=== PATIENT | female | born 1965 ===

== ENCOUNTER 2016-09-13 18:36 | Emergency (ER) | payer OTHER ==
[2016-09-13 18:37] VITALS: BMI 36.6
[2016-09-13 19:21] VITALS: BP 153/53; PULSE 72; RESP 16; TEMP 98.1; O2SAT 99
--- NOTE | 2016-09-13 19:48 | ED PDOC ---
HPI: Back Time Seen by Provider: 09/13/16 19:21 Chief Complaint (Nursing): Back Pain Chief Complaint (Provider): Back Pain History Per: Patient Additional Complaint(s): 51 yo female, no PMH, presents to ED with complaints of lower back pain x 1 week. Pt states pain radiates down left leg x 3 days. Denies trauma. Past Medical History Vital Signs: Last Vital Signs Temp 98.1 F 09/13/16 19:18 Pulse 72 09/13/16 19:18 Resp 16 09/13/16 19:18 BP 153/53 H 09/13/16 19:18 Pulse Ox 99 09/13/16 19:18 - Home Medications Home Medications: Ambulatory Orders Medication Instructions Recorded traMADol [Ultram] 50 mg PO TID #16 tab 03/22/14 Tramadol Hydrochloride [Tramadol] 50 mg PO TID PRN #18 tab 09/04/14 - Allergies Allergies/Adverse Reactions: Allergies Allergy/AdvReac Type Severity Reaction Status Date / Time No Known Allergies Allergy Verified 03/22/14 18:46 - ECG O2 Sat by Pulse Oximetry: 99
[2016-09-13] MEDS ORDERED: Oxycodone/Acetaminophen 5/325 mg Tab ONE (20:22)
[2016-09-13] MEDS ORDERED: Oxycodone/Acetaminophen 5/325 mg Tab PO STA (20:23)
--- NOTE | 2016-09-14 09:43 | RAD ---
PROCEDURE: Left knee dated 09/13/2016. HISTORY: pain COMPARISON: No prior study available for comparison TECHNIQUE: Five views of the left knee performed. FINDINGS: No evidence of acute displaced fracture nor dislocation. The osseous structures appear intact. There appears to be some very minimal medial joint space narrowing. Questionable trace suprapatellar joint effusion. IMPRESSION: No acute fractures. There appears be some very minimal medial joint space narrowing with questionable trace suprapatellar joint effusion
== END 2016-09-13 21:47 | disposition home or self-care (01) ==
LOC: H.ER 18:36
DX: M25.562 Pain in left knee (principal); M54.9 Dorsalgia, unspecified

== ENCOUNTER 2017-05-04 09:05 | Observation (INO) | payer OTHER ==
[2017-05-04 09:18] VITALS: BMI 38.5
[2017-05-04] MEDS ORDERED: Albuterol-Ipratrop 3 mg / 0.5 (3 ml) UD INH STA (09:43)
[2017-05-04] MEDS ORDERED: Albuterol-Ipratrop 3 mg / 0.5 (3 ml) UD IH STA (09:43)
--- NOTE | 2017-05-04 09:47 | ED PDOC ---
HPI: General Adult Time Seen by Provider: 05/04/17 09:16 Chief Complaint (Nursing): Cough, Cold, Congestion Chief Complaint (Provider): Cough History Per: Patient History/Exam Limitations: no limitations Onset/Duration Of Symptoms: Days (yesterday) Have you had recent travel within the past 21 days to any of the following countries: [place], [place], [place] or [place]?: No Current Symptoms Are (Timing): Still Present Severity: Mild Additional Complaint(s): Pt. with cough, congestion, runny nose, bodyaches, chest pain, dyspnea, weakness all over. No headaches or dizziness. Yellow sputum. No abd pain, nausea, vomit, diarrhea. No fever. Past Medical History Reviewed: Nursing Documentation, Vital Signs Vital Signs: Last Vital Signs Temp 98.6 F 05/04/17 09:17 Pulse 100 H 05/04/17 09:17 Resp 16 05/04/17 09:17 BP 116/73 05/04/17 09:17 Pulse Ox 97 05/04/17 09:48 - Medical History PMH: No Chronic Diseases - Surgical History Surgical History: No Surg Hx - Family History Family History: States: Unknown Family Hx - Living Arrangements Living Arrangements: With Family - Social History Current smoker - smoking cessation education provided: No Alcohol: None Drugs: Denies - Home Medications Home Medications: Ambulatory Orders Medication Instructions Recorded traMADol [Ultram] 50 mg PO TID #16 tab 03/22/14 Tramadol Hydrochloride [Tramadol] 50 mg PO TID PRN #18 tab 09/04/14 Cyclobenzaprine [Cyclobenzaprine 10 mg PO TID #20 tab 09/13/16 HCl] Ibuprofen [Motrin] 600 mg PO Q6 #20 tab 09/13/16 oxyCODONE/Acetaminophen [Percocet 1 ea PO Q6 PRN #5 tab 09/13/16 5/325 mg Tab] - Allergies Allergies/Adverse Reactions: Allergies Allergy/AdvReac Type Severity Reaction Status Date / Time No Known Allergies Allergy Verified 05/04/17 09:23 Review of Systems ROS Statement: Except As Marked, All Systems Reviewed And Found Negative Constitutional: Positive for: Weakness ENT: Positive for: Nose Discharge, Nose Congestion Cardiovascular: Positive for: Chest Pain Respiratory: Positive for: Cough, Shortness of Breath, Sputum Musculoskeletal: Positive for: Other (body aches) Neurological: Positive for: Weakness Physical Exam - Reviewed Nursing Documentation Reviewed: Yes Vital Signs Reviewed: Yes - Physical Exam Appears: Positive for: Uncomfortable Head Exam: Positive for: ATRAUMATIC, NORMAL INSPECTION, NORMOCEPHALIC Skin: Positive for: Normal Color, Warm, DRY Eye Exam: Positive for: EOMI, Normal appearance, PERRL ENT: Positive for: Nasal Congestion. Negative for: Pharyngeal Erythema, Tonsillar Exudate Neck: Positive for: Normal, Painless ROM, Supple Cardiovascular/Chest: Positive for: Regular Rate, Rhythm, Chest Non Tender. Negative for: Edema Respiratory: Positive for: Decreased Breath Sounds, Wheezing (mild b/l on expiration) Gastrointestinal/Abdominal: Positive for: Normal Exam, Bowel Sounds, Soft. Negative for: Tenderness Back: Positive for: Normal Inspection. Negative for: L CVA Tenderness, R CVA Tenderness Extremity: Positive for: Normal ROM. Negative for: Tenderness, Pedal Edema Neurologic/Psych: Positive for: Alert, knowledge architect II-XII, Oriented. Negative for: Motor/Sensory Deficits - Laboratory Results Result Diagrams: 05/04/17 10:10 05/04/17 10:10 Interpretation Of Abn Labs: 20.4 wbc - ECG ECG: Positive for: Interpreted By Me, Viewed By Me ECG Rhythm: Positive for: Normal QRS, Normal ST Segment, Sinus Rhythm O2 Sat by Pulse Oximetry: 97 Pulse Ox Interpretation: Normal - Radiology X-Ray: Interpreted by Me, Viewed By Me X-Ray Interpretation: Infiltrates (? b/l peribronchiliar) - Progress ED Course And Treament: 1151: Considering wbc, clinical, and x-ray, will admit tele for pneumonia, sepsis. Stable. Feels better. AAOx3. Spoke with Dr. Brandon. Will admit. - Critical Care Total Time (In Min): 30 Documented Critical Care: Time excludes all time spent performint seperately billable procedures Disposition - Clinical Impression Clinical Impression: Pneumonia - Patient ED Disposition Is Patient to be Admitted: No Counseled Patient/Family Regarding: Studies Performed, Diagnosis, Need For Followup - Disposition Disposition Time: 11:52 Condition: FAIR - Pt Status Changed To: Hospital Disposition Of: Inpatient - Admit Certification Admit to Inpatient:: After my assessment, the patient will require hospitalization for at least two midnights. This is because of the severity of symptoms shown, intensity of services needed, and/or the medical risk in this patient being treated as an outpatient. - POA Present On Arrival: None Core Measure Indicators: Pneumonia
[2017-05-04 10:15] LABS: VENOUS BLOOD GAS BASE EXCESS 6.4 mmol/L (0.0-2.0); VENOUS BLOOD GAS PCO2 45 mmHg (40-60); VENOUS BLOOD PH 7.45 (7.32-7.43)
[2017-05-04] MEDS ORDERED: Albuterol-Ipratrop 3 mg / 0.5 (3 ml) UD ONE (10:17)
[2017-05-04] MEDS: Sodium Chloride 0.9% 1,000 ML IV SCH ×2 (10:18→13:43)
[2017-05-04 10:29] LABS: BASO # 0.1 K/uL (0.0-0.2); BASO % 0.5 % (0.0-2.0); EOS # 0.1 K/uL (0.0-0.7); EOS % 0.4 % (0.0-4.0); HEMATOCRIT 38.8 % (34.0-47.0); LYMPH # 2.4 K/uL (1.0-4.3); LYMPH % 11.5 % (20.0-40.0); MEAN CELL VOLUME 83.9 fl (81.0-99.0); MEAN CORPUSCULAR HEMOGLOBIN 27.3 pg (27.0-31.0); MEAN CORPUSCULAR HGB CONC 32.5 g/dL (33.0-37.0); MEAN PLATELET VOLUME 7.9 fl (7.2-11.7); MONO # 1.9 K/uL (0.0-0.8); MONO % 9.5 % (0.0-10.0); NEUT % 78.1 % (50.0-75.0); NRBC % 0.1 % (0.0-0.0); RED CELL DISTRIBUTION WIDTH 17.6 % (11.5-14.5); WHITE BLOOD COUNT 20.4 K/uL (4.8-10.8)
[2017-05-04 10:42] LABS: PARTIAL THROMBOPLASTIN TIME 23.5 Seconds (25.6-37.1)
[2017-05-04 10:43] LABS: ALB/GLOB RATIO 1.2 (1.0-2.1); ALKALINE PHOSPHATASE 69 U/L (38-126); ALT/SGPT 58 U/L (9-52); AST/SGOT 45 U/L (14-36); BILIRUBIN,TOTAL 0.7 mg/dl (0.2-1.3); BLOOD UREA NITROGEN 10 mg/dl (7-17); CALCIUM 8.6 mg/dL (8.4-10.2); CARBON DIOXIDE 28 mmol/L (22-30); CHLORIDE 98 mmol/L (98-107); GFR AFRICAN-AMERICAN > 60; GLUCOSE,RANDOM 103 mg/dL (65-105); PHOSPHOROUS 3.5 mg/dl (2.5-4.5); POTASSIUM 4.2 MMOL/L (3.6-5.0); SODIUM 135 mmol/l (132-148); TOTAL PROTEIN 7.6 G/DL (6.3-8.2)
--- NOTE | 2017-05-04 11:38 | RAD ---
HISTORY: Sepsis Patient COMPARISON: No prior study available for comparison FINDINGS: LUNGS: Poor inspiration with low lung volumes, crowded bronchovascular markings and mild bibasilar atelectasis. PLEURA: No significant pleural effusion identified, no pneumothorax apparent. CARDIOVASCULAR: Heart size is upper limits of normal/ borderline enlarged OSSEOUS STRUCTURES: No significant abnormalities. VISUALIZED UPPER ABDOMEN: Normal. OTHER FINDINGS: None. IMPRESSION: Poor inspiration with low lung volumes, crowded bronchovascular markings and mild bibasilar atelectasis.
[2017-05-04] MEDS ORDERED: cefTRIAXone (Rocephin) 1 gm Inj IV ONE (11:47)
[2017-05-04] MEDS ORDERED: Sodium Chloride 3% for Inhalation 4 ML VIAL.NEB IH PRN (12:02)
[2017-05-04] MEDS ORDERED: Azithromycin 500 MG in Sodium Chloride 0.9% 250 ML IVPB STA (12:08)
[2017-05-04] MEDS ORDERED: cefTRIAXone IV 1 gm in Dextros 50 ML IVPB STA (12:08)
--- NOTE | 2017-05-04 15:01 | CP.PCM.HP ---
History of Present Illness - History of Present Illness History of Present Illness: CC: Cough, fever, chills This is a 52 year old female with no significant past medical history who came to the ED this morning complaining of severe productive cough, congestion, chest tightness, subjective fever and chills at home for 2 days. She denies any recent sick contacts. Denies any recent travel. The patient states that nothing has made her symptoms better. In the ED, she was found to have significant leukocytosis > 20 and tachycardic at 100. Lactic acid is within normal limits. CXR shows bilateral infiltrative changes consistent with atypical pneumonia. Patient's vital signs improved with fluids, steroids, nebulizer treatment, and antibiotics in the ED. She is to be admitted to telemetry for bilateral pneumonia, atypical, and sepsis. Patient denies chest pain, shortness of breath , fevers, chills, nausea, vomiting, diarrhea, headache. Rest of ROS as below. All of the patient's and/or family's questions were answered at the bedside. Present on Admission - Present on Admission Any Indicators Present on Admission: No Review of Systems - Hematologic/Lymphatic Additional comments: GENERAL/CONSTITUTIONAL: The patient admits to fatigue, fever, and chills. She denies weakness, weight gain or weight loss. HEAD, EYES, EARS, NOSE AND THROAT: Eyes - The patient denies pain, redness, loss of vision, double or blurred vision, flashing lights or spots, dryness, Ears, nose, mouth and throat. The patient denies ringing in the ears, loss of hearing, nosebleeds, loss of sense of smell, dry sinuses, sinusitis, post nasal drip, CARDIOVASCULAR: The patient denies chest pain, chest pressure, or irregular heartbeats, RESPIRATORY: The patient admits to productive cough, congestion, and intermittent shortness of breath. She denies chronic dry cough, coughing up blood, wheezing. GASTROINTESTINAL: The patient denies decreased appetite, nausea, vomiting, vomiting blood or coffee ground material, heartburn, regurgitation, diarrhea, constipation, gas, blood in the stools, black tarry stools. GENITOURINARY: The patient denies difficult urination, pain or burning with urination, blood in the urine, frequency, or urgency MUSCULOSKELETAL: The patient denies arm, buttock, thigh or calf cramps. No joint or muscle pain. No muscle weakness or tenderness. No joint swelling, neck pain, back pain. SKIN: The patient denies easy bruising, skin redness, skin rash, hives, sensitivity to sun exposure, tightness, nodules or bumps, hair loss, color changes in the hands or feet with cold. NEUROLOGIC: The patient denies headache, dizziness, fainting, muscle spasm, loss of consciousness, sensitivity or pain in the hands and feet or memory loss. PSYCHIATRIC: The patient denies anxiety, depression, or thoughts of suicide. ENDOCRINE: The patient denies intolerance to hot or cold temperature, flushing, fingernail changes, increased thirst, or increased salt intake HEMATOLOGIC/LYMPHATIC: The patient denies anemia, bleeding tendency or clotting tendency. ALLERGIC/IMMUNOLOGIC: The patient denies rhinitis, asthma, skin sensitivity, latex allergies or sensitivity. Past Patient History - Infectious Disease Hx of Infectious Diseases: None - Past Medical History & Family History Past Medical History?: No Past Family History: Reviewed and not pertinent - Past Social History Smoking Status: Never Smoked Alcohol: None Drugs: Denies - PSYCHIATRIC Hx Substance Use: No - SURGICAL HISTORY Hx Surgeries: No - ANESTHESIA Hx Anesthesia: No Meds Allergies/Adverse Reactions: Allergies Allergy/AdvReac Type Severity Reaction Status Date / Time No Known Allergies Allergy Verified 05/04/17 09:23 Physical Exam - Additional Findings Additional findings: Physical exam: Constitutional- cooperative, awake, alert. Head- NCAT, PERRL Eye- PERRL, normal accommodation ENT- normal exam, MMM. Neck- normal inspection, supple, no JVD Respiratory- CTAB, no wheezes, rales, or rhonchi Cardiovascular- RRR, +S1, +S2 no MRG GI/Abdominal- normal bowel sounds, soft, no mass, no hsm Skin- warm, dry Extremities Exam- normal capillary refill, normal inspection Neurological Exam- alert, stable gait Psych- normal mood, normal affect Results - Vital Signs Recent Vital Signs: Last Vital Signs Temp 98.3 F 05/04/17 13:56 Pulse 78 05/04/17 13:56 Resp 18 05/04/17 13:56 BP 127/68 05/04/17 13:56 Pulse Ox 100 05/04/17 13:56 - Labs Result Diagrams: 05/04/17 10:10 05/04/17 10:10 Labs: Laboratory Results - last 24 hr 05/04/17 05/04/17 05/04/17 10:05 10:10 10:10 WBC 20.4 H D RBC 4.62 Hgb 12.6 Hct 38.8 MCV 83.9 D MCH 27.3 MCHC 32.5 L RDW 17.6 H Plt Count 275 MPV 7.9 Neut % (Auto) 78.1 H Lymph % (Auto) 11.5 L Pine % (Auto) 9.5 Eos % (Auto) 0.4 Baso % (Auto) 0.5 Neut # 16.0 H Lymph # 2.4 Pine # 1.9 H Eos # 0.1 Baso # 0.1 PT INR APTT pO2 31 VBG pH 7.45 H VBG pCO2 45 VBG HCO3 29.0 VBG Total CO2 32.7 H VBG O2 Sat (Calc) 63.7 VBG Base Excess 6.4 H VBG Potassium 3.7 Sodium 134.0 135 Chloride 100.0 98 Glucose 113 H Lactate 1.7 FiO2 21.0 Potassium 4.2 Carbon Dioxide 28 Anion Gap 13 BUN 10 Creatinine 0.7 Est GFR ( Amer) > 60 Est GFR (Non-Af Amer) > 60 Random Glucose 103 Calcium 8.6 Phosphorus 3.5 Magnesium 2.0 Total Bilirubin 0.7 AST 45 H ALT 58 H D Alkaline Phosphatase 69 Troponin I < 0.0120 NT-Pro-B Natriuret Pep 40.0 Total Protein 7.6 Albumin 4.1 Globulin 3.5 Albumin/Globulin Ratio 1.2 Venous Blood Potassium 3.7 Influenza Typ A,B (EIA) 05/04/17 05/04/17 10:10 11:10 WBC RBC Hgb Hct MCV MCH MCHC RDW Plt Count MPV Neut % (Auto) Lymph % (Auto) Pine % (Auto) Eos % (Auto) Baso % (Auto) Neut # Lymph # Pine # Eos # Baso # PT 11.7 INR 1.0 APTT 23.5 L pO2 VBG pH VBG pCO2 VBG HCO3 VBG Total CO2 VBG O2 Sat (Calc) VBG Base Excess VBG Potassium Sodium Chloride Glucose Lactate FiO2 Potassium Carbon Dioxide Anion Gap BUN Creatinine Est GFR ( Amer) Est GFR (Non-Af Amer) Random Glucose Calcium Phosphorus Magnesium Total Bilirubin AST ALT Alkaline Phosphatase Troponin I NT-Pro-B Natriuret Pep Total Protein Albumin Globulin Albumin/Globulin Ratio Venous Blood Potassium Influenza Typ A,B (EIA) Negative for flu a/b Assessment & Plan - Assessment and Plan (Free Text) Plan: ASSESSMENT - Bilateral atypical community acquired pneumonia - Sepsis, much improved with fluids - Leukocytosis of 20.4, left shift - Mild elevated transaminase levels, likely secondary to sepsis - Clinical dehydration - Obesity, BMI 38.5 PLAN - Admit to telemetry floor - Monitor vitals closely - Condition Good - Azithromycin/Rocephin for empiric IV antibiotic therapy - Follow up Blood DX, Sputum CX - Tylenol PRN for fever - NS at 100 cc/hour for further fluid resuscitation - Repeat CBC, BMP in AM - If patient continues to improve rapidly may be able to be discharged tomorrow. - DVT prophylaxis with heparin 5000 units SQ q 12 hours
[2017-05-04] MEDS ORDERED: guaiFENesin DM 200 mg-20 mg/10 ml UD PO PRN (15:03)
--- NOTE | 2017-05-04 17:34 | CARD ---
APPROVED REPORT EKG Measurement Heart [id number] <Conclusion> Normal sinus rhythm Nonspecific T wave abnormality Abnormal ECG
[2017-05-05] MEDS: Sodium Chloride 0.9% 1,000 ML IV SCH ×5 (00:07→10:45)
[2017-05-05 01:27] VITALS: RESP 18; O2SAT 95
[2017-05-05 06:57] LABS: BASO # 0.1 K/uL (0.0-0.2); BASO % 0.5 % (0.0-2.0); EOS % 0.1 % (0.0-4.0); HEMATOCRIT 36.2 % (34.0-47.0); LYMPH # 1.7 K/uL (1.0-4.3); LYMPH % 8.2 % (20.0-40.0); MEAN CELL VOLUME 86.1 fl (81.0-99.0); MEAN CORPUSCULAR HEMOGLOBIN 27.9 pg (27.0-31.0); MEAN CORPUSCULAR HGB CONC 32.4 g/dL (33.0-37.0); MONO # 1.2 K/uL (0.0-0.8); MONO % 5.8 % (0.0-10.0); NEUT # 17.7 K/uL (1.8-7.0); NEUT % 85.4 % (50.0-75.0); PLATELET COUNT 226 K/uL (130-400); RED CELL DISTRIBUTION WIDTH 17.3 % (11.5-14.5); WHITE BLOOD COUNT 20.8 K/uL (4.8-10.8)
[2017-05-05 07:13] LABS: BLOOD UREA NITROGEN 10 mg/dl (7-17); CALCIUM 8.3 mg/dL (8.4-10.2); CARBON DIOXIDE 25 mmol/L (22-30); CHLORIDE 111 mmol/L (98-107); GFR AFRICAN-AMERICAN > 60; GLUCOSE,RANDOM 119 mg/dL (65-105); POTASSIUM 4.2 MMOL/L (3.6-5.0); SODIUM 143 mmol/l (132-148)
[2017-05-05 07:43] VITALS: BP 119/74; PULSE 95; TEMP 98
[2017-05-05] MEDS ORDERED: Azithromycin 500 MG in Sodium Chloride 0.9% 250 ML IVPB SCH (09:00)
[2017-05-05] MEDS ORDERED: cefTRIAXone IV 1 gm in Dextros 50 ML IVPB SCH (09:00)
--- NOTE | 2017-05-05 11:07 | CP.PCM.DIS ---
Provider - Provider Date of Admission: 05/04/17 11:52 Attending physician: Miguel Brandon DO Time Spent in preparation of Discharge (in minutes): 25 Hospital Course - Lab Results Lab Results: Most Recent Lab Values WBC 20.8 K/uL (4.8-10.8) H 05/05/17 05:30 RBC 4.21 Mil/uL (3.80-5.20) 05/05/17 05:30 Hgb 11.7 g/dL (12.0-16.0) L 05/05/17 05:30 Hct 36.2 % (34.0-47.0) 05/05/17 05:30 MCV 86.1 fl (81.0-99.0) D 05/05/17 05:30 MCH 27.9 pg (27.0-31.0) 05/05/17 05:30 MCHC 32.4 g/dL (33.0-37.0) L 05/05/17 05:30 RDW 17.3 % (11.5-14.5) H 05/05/17 05:30 Plt Count 226 K/uL (130-400) 05/05/17 05:30 MPV 8.0 fl (7.2-11.7) 05/05/17 05:30 Neut % (Auto) 85.4 % (50.0-75.0) H 05/05/17 05:30 Lymph % (Auto) 8.2 % (20.0-40.0) L 05/05/17 05:30 [place] % (Auto) 5.8 % (0.0-10.0) 05/05/17 05:30 Eos % (Auto) 0.1 % (0.0-4.0) 05/05/17 05:30 Baso % (Auto) 0.5 % (0.0-2.0) 05/05/17 05:30 Neut # 17.7 K/uL (1.8-7.0) H 05/05/17 05:30 Lymph # 1.7 K/uL (1.0-4.3) 05/05/17 05:30 [place] # 1.2 K/uL (0.0-0.8) H 05/05/17 05:30 Eos # 0.0 K/uL (0.0-0.7) 05/05/17 05:30 Baso # 0.1 K/uL (0.0-0.2) 05/05/17 05:30 PT 11.7 Seconds (9.8-13.1) 05/04/17 10:10 INR 1.0 (0.9-1.2) 05/04/17 10:10 APTT 23.5 Seconds (25.6-37.1) L 05/04/17 10:10 pO2 31 mm/Hg (30-55) 05/04/17 10:05 VBG pH 7.45 (7.32-7.43) H 05/04/17 10:05 VBG pCO2 45 mmHg (40-60) 05/04/17 10:05 VBG HCO3 29.0 mmol/L 05/04/17 10:05 VBG Total CO2 32.7 mmol/L (22-28) H 05/04/17 10:05 VBG O2 Sat (Calc) 63.7 % (40-65) 05/04/17 10:05 VBG Base Excess 6.4 mmol/L (0.0-2.0) H 05/04/17 10:05 VBG Potassium 3.7 mmol/L (3.6-5.2) 05/04/17 10:05 Sodium 134.0 mmol/L (132-148) 05/04/17 10:05 Chloride 100.0 mmol/L (98-107) 05/04/17 10:05 Glucose 113 mg/dL (65-105) H 05/04/17 10:05 Lactate 1.7 mmol/L (0.7-2.1) 05/04/17 10:05 FiO2 21.0 % 05/04/17 10:05 Sodium 143 mmol/l (132-148) 05/05/17 05:30 Potassium 4.2 MMOL/L (3.6-5.0) 05/05/17 05:30 Chloride 111 mmol/L (98-107) H 05/05/17 05:30 Carbon Dioxide 25 mmol/L (22-30) 05/05/17 05:30 Anion Gap 11 (10-20) 05/05/17 05:30 BUN 10 mg/dl (7-17) 05/05/17 05:30 Creatinine 0.5 mg/dL (0.7-1.2) L 05/05/17 05:30 Est GFR ( Amer) > 60 05/05/17 05:30 Est GFR (Non-Af Amer) > 60 05/05/17 05:30 Random Glucose 119 mg/dL (65-105) H 05/05/17 05:30 Calcium 8.3 mg/dL (8.4-10.2) L 05/05/17 05:30 Phosphorus 3.5 mg/dl (2.5-4.5) 05/04/17 10:10 Magnesium 2.0 MG/DL (1.6-2.3) 05/04/17 10:10 Total Bilirubin 0.7 mg/dl (0.2-1.3) 05/04/17 10:10 AST 45 U/L (14-36) H 05/04/17 10:10 ALT 58 U/L (9-52) H D 05/04/17 10:10 Alkaline Phosphatase 69 U/L (38-126) 05/04/17 10:10 Troponin I < 0.0120 ng/mL (0.00-0.120) 05/04/17 10:10 NT-Pro-B Natriuret Pep 40.0 pg/ml (0-900) 05/04/17 10:10 Total Protein 7.6 G/DL (6.3-8.2) 05/04/17 10:10 Albumin 4.1 g/dL (3.5-5.0) 05/04/17 10:10 Globulin 3.5 gm/dL (2.2-3.9) 05/04/17 10:10 Albumin/Globulin Ratio 1.2 (1.0-2.1) 05/04/17 10:10 Venous Blood Potassium 3.7 mmol/L (3.6-5.2) 05/04/17 10:05 Influenza Typ A,B (EIA) Negative for flu a/b (NEGATIVE) 05/04/17 11:10 - Hospital Course Hospital Course: This is a 52 year old female with no significant past medical history who came to the ED on 05/04/2017 with the complaint of severe productive cough, congestion, chest tightness, subjective fever and chills at home for 2 days. She denied any recent sick contacts. Denied any recent travel. The patient stated that nothing has made her symptoms better. In the ED, she was found to have significant leukocytosis > 20 and tachycardic at 100. Lactic acid is within normal limits. CXR shows bilateral infiltrative changes consistent with atypical pneumonia. Patient's vital signs greatly improved with fluids, steroids , nebulizer treatment, and antibiotics in the ED. Her hemodynamic status continued to be stable overnight with continued fluids overnight. She continued to remain afebrile. This morning, she feels comfortable and says that her cough is much better. She denies any fevers, chills, shortness of breath today. She is to be discharged home today with oral antibiotics. ASSESSMENT/PLAN Bilateral atypical community acquired pneumonia - Greatly improved - Discharge home with Doxycycline 100 mg po q 12 hours for 5 days - Return to ED for worsening sob, fevers, cough Sepsis - Resolved Leukocytosis of 20.4-->20.8 - Persistant secondary to Solu-medrol given in ED along with concomitant infection - Pt encouraged to f/u with PMD of her choice as outpatient Clinical dehydration - Resolved Obesity, BMI 38.5 Discharge Exam - Additional Findings Additional findings: Physical exam: Constitutional- cooperative, awake, alert. Head- NCAT, PERRL Eye- PERRL, normal accommodation ENT- normal exam, MMM. Neck- normal inspection, supple, no JVD Respiratory- CTAB, minimal bilateral wheezing, no rales or rhonchi Cardiovascular- RRR, +S1, +S2 no MRG GI/Abdominal- normal bowel sounds, soft, protuberant but nondistended, no mass, no hsm Skin- warm, dry Extremities Exam- normal capillary refill, normal inspection Neurological Exam- alert, stable gait Psych- normal mood, normal affect Discharge Plan - Discharge Medications Prescriptions: Doxycycline Monohydrate 100 mg PO Q12H 5 Days #10 tablet guaiFENesin/Dextromethorphan [Robitussin DM] 10 ml PO Q6 PRN #1 bottle PRN Reason: Cough - Follow Up Plan Condition: FAIR Disposition: HOME/ ROUTINE Instructions: Decongestant/Expectorant (By mouth), Guaifenesin (By mouth)
[2017-05-05 12:43] LABS: MYELOCYTE 1 % (0-0); NEUTROPHIL 77 % (42-75); TOTAL CELLS COUNTED 100
== END 2017-05-05 14:12 | disposition home or self-care (01) ==
LOC: H.ER 09:05 → INTOOBSV 11:52 → H.ERHOLD 11:52 → H.MEDSURG1 21:23
PROVIDERS: ADMIT Internal Medicine; ATTEND Internal Medicine
DX: J18.9 Pneumonia, unspecified organism (principal); A41.9 Sepsis, unspecified organism; E66.9 Obesity, unspecified; Z68.38 Body mass index [BMI] 38.0-38.9, adult; E86.0 Dehydration; R00.0 Tachycardia, unspecified; R74.0 Nonspecific elevation of levels of transaminase and lactic acid dehydrogenase [LDH]
CPT/HCPCS: 36415; 71010; 80048; 80053; 81025; 82803; 83735; 83880; 84100; 84484; 85025; 85610; 85730; 87040; 87804; 93005; 94150; 94640; 96361; 96365; 96366; 96367; 96372; 96375; 99285; G0378; J0456; J0696; J1644; J1885; J2930; J7040; J7050

== ENCOUNTER 2017-06-06 21:36 | Emergency (ER) | payer OTHER, SELFPAY ==
[2017-06-06 21:36] VITALS: BMI 38.5
[2017-06-06 21:43] VITALS: BP 162/97; PULSE 79; RESP 16; TEMP 98.1; O2SAT 100
--- NOTE | 2017-06-06 22:02 | ED PDOC ---
HPI: CCC, URI, Sore Throat Time Seen by Provider: 06/06/17 21:45 Chief Complaint (Nursing): ENT Problem Chief Complaint (Provider): sore throat, body aches History Per: Patient Additional Complaint(s): 52-year-old female presents with sore throat and body aches for one week. Patient is tolerating liquids and solids but has pain when swallowing. She denies any cough. Tylenol has helped only minimally. She denies recent travel or known sick contacts. Past Medical History Vital Signs: Last Vital Signs Temp 98.1 F 06/06/17 21:41 Pulse 79 06/06/17 21:41 Resp 16 06/06/17 21:41 BP 162/97 H 06/06/17 21:41 Pulse Ox 100 06/06/17 21:41 - Medical History PMH: No Chronic Diseases - Surgical History Surgical History: No Surg Hx - Family History Family History: States: No Known Family Hx - Living Arrangements Living Arrangements: With Family - Social History Current smoker - smoking cessation education provided: No Alcohol: None Drugs: Denies - Home Medications Home Medications: Ambulatory Orders Medication Instructions Recorded Doxycycline Monohydrate 100 mg PO Q12H 5 Days #10 tablet 05/05/17 guaiFENesin/Dextromethorphan 10 ml PO Q6 PRN #1 bottle 05/05/17 [Robitussin DM] Amoxicillin/Clavulanate [Augmentin 1 tab PO BID #14 tab 06/06/17 875 MG-125 MG] Ibuprofen [Motrin Tab] 800 mg PO Q8 PRN #20 tab 06/06/17 - Allergies Allergies/Adverse Reactions: Allergies Allergy/AdvReac Type Severity Reaction Status Date / Time No Known Allergies Allergy Verified 05/04/17 09:23 Review of Systems ROS Statement: Except As Marked, All Systems Reviewed And Found Negative Constitutional: Positive for: Other (body aches). Negative for: Fever ENT: Positive for: Throat Pain Respiratory: Negative for: Cough Physical Exam - Reviewed Nursing Documentation Reviewed: Yes Vital Signs Reviewed: Yes - Physical Exam Appears: Positive for: Well, Non-toxic, No Acute Distress Skin: Negative for: Rash Eye Exam: Positive for: Normal appearance ENT: Positive for: Pharyngeal Erythema, Tonsillar Swelling Cardiovascular/Chest: Positive for: Regular Rate, Rhythm Respiratory: Positive for: Normal Breath Sounds. Negative for: Wheezing, Respiratory Distress Extremity: Positive for: Normal ROM Lymphatic: Positive for: Adenopathy (Bilateral anterior cervical lymphadenopathy ) Neurologic/Psych: Positive for: Alert, Oriented - ECG O2 Sat by Pulse Oximetry: 100 Pulse Ox Interpretation: Normal Medical Decision Making Medical Decision Makin-year-old female with pharyngitis Plan: Throat culture Motrin dose Prescriptions given for Augmentin and Motrin. Patient was advised to drink plenty of fluids and get plenty of rest. She was referred to clinic for follow- up. Disposition - Clinical Impression Clinical Impression: Pharyngitis - Patient ED Disposition Is Patient to be Admitted: No Counseled Patient/Family Regarding: Studies Performed, Diagnosis, Need For Followup, Rx Given - Disposition Referrals: [facility] [Outside] Disposition: Routine/Home Disposition Time: 22:01 Condition: STABLE Additional Instructions: Take prescription meds as directed. Drink plenty of fluids and get plenty of rest. Follow-up with clinic in 2-3 days. Prescriptions: Amoxicillin/Clavulanate [Augmentin 875 MG-125 MG] 1 tab PO BID #14 tab Ibuprofen [Motrin Tab] 800 mg PO Q8 PRN #20 tab PRN Reason: Pain, Moderate (4-7) Instructions: Pharyngitis (ED) Forms: [employer] (Macedonian) Print Language: CROATIAN
== END 2017-06-06 22:11 | disposition home or self-care (01) ==
LOC: H.ER 21:36
DX: J02.9 Acute pharyngitis, unspecified (principal)

== ENCOUNTER 2017-06-13 10:48 | Emergency (ER) | payer OTHER ==
[2017-06-13 10:48] VITALS: BMI 38.5
[2017-06-13 11:08] VITALS: O2SAT 98
--- NOTE | 2017-06-13 13:03 | ED PDOC ---
HPI: General Adult Time Seen by Provider: 06/13/17 11:11 Chief Complaint (Nursing): Upper Extremity Problem/Injury History Per: Patient, [place] Steward ([facility]eless [id number]) Additional Complaint(s): Pt. states for the past 4 days she's had worsening pain the L hand. Reports pain initially started on R 3rd, 4th, and 5th digits which radiates towards the entire left upper extremity and ends in the L shoulder. Denies chest pain, SOB, palpitations, trauma, fever, weakness. Pt. is R hand dominant. Has not used any meds to help relieve symptoms. Past Medical History Reviewed: Historical Data, Nursing Documentation, Vital Signs Vital Signs: Last Vital Signs Temp Pulse Resp BP Pulse Ox 98 06/13/17 11:06 - Medical History PMH: Denies: Chronic Kidney Disease - Surgical History Surgical History: No Surg Hx - Family History Family History: States: No Known Family Hx - Home Medications Home Medications: Ambulatory Orders Medication Instructions Recorded Doxycycline Monohydrate 100 mg PO Q12H 5 Days #10 tablet 05/05/17 guaiFENesin/Dextromethorphan 10 ml PO Q6 PRN #1 bottle 05/05/17 [Robitussin DM] Amoxicillin/Clavulanate [Augmentin 1 tab PO BID #14 tab 06/06/17 875 MG-125 MG] Ibuprofen [Motrin Tab] 800 mg PO Q8 PRN #20 tab 06/06/17 Naproxen [Naprosyn] 500 mg PO BID PRN #14 tab 06/13/17 - Allergies Allergies/Adverse Reactions: Allergies Allergy/AdvReac Type Severity Reaction Status Date / Time No Known Allergies Allergy Verified 05/04/17 09:23 Review of Systems ROS Statement: Except As Marked, All Systems Reviewed And Found Negative Physical Exam - Physical Exam Appears: Positive for: Well, Non-toxic, No Acute Distress Skin: Positive for: Normal Color, Warm. Negative for: Rash Pulses-Radial (L): 2+ Pulses-Radial (R): 2+ Extremity: Positive for: Normal ROM (entire L upper extremity), Capillary Refill (< 2 seconds of L hand), Other (negative phalen's and tinels sign). Negative for: Tenderness (of entire L upper extremity) Neurologic/Psych: Positive for: Alert, Oriented, Other (equal razor grinder strenght b/l) . Negative for: Aphasia, Facial Droop - ECG O2 Sat by Pulse Oximetry: 98 - Radiology X-Ray: Interpreted by Me (L hand x-ray) X-Ray Interpretation: No Acute Disease - Progress ED Course And Treament: Toradol 30mg IM ordered. Hand in placed in velcro cock up splint. Disposition - Clinical Impression Clinical Impression: Ulnar nerve abnormality, Paresthesia - Patient ED Disposition Is Patient to be Admitted: No - Disposition Referrals: Greyson Mondragon MD [Medical Doctor] - [facility] [Outside] Disposition: Routine/Home Disposition Time: 12:45 Condition: STABLE Prescriptions: Naproxen [Naprosyn] 500 mg PO BID PRN #14 tab PRN Reason: Pain Instructions: Paresthesia (ED) Forms: [facility] (Stateless) Print Language: MICRONESIAN
[2017-06-13 14:53] VITALS: BP 120/70; PULSE 76; RESP 20; TEMP 98.6
--- NOTE | 2017-06-13 15:46 | RAD ---
PROCEDURE: Left Hand Radiographs. HISTORY: pain COMPARISON: None. FINDINGS: BONES: No acute fracture or destructive bony lesion identified. JOINTS: Normal. No osteoarthritic changes. SOFT TISSUES: Normal. OTHER FINDINGS: None. IMPRESSION: Unremarkable left hand radiographs.
--- NOTE | 2017-06-14 15:56 | CARD ---
APPROVED REPORT EKG Measurement Heart [id number] <Conclusion> Normal sinus rhythm Normal ECG
== END 2017-06-13 14:53 | disposition home or self-care (01) ==
LOC: H.ER 10:48
DX: G56.22 Lesion of ulnar nerve, left upper limb (principal); R20.2 Paresthesia of skin
CPT/HCPCS: 29125; 73130; 93005; 96372; 99284; J1885

== ENCOUNTER 2017-06-18 23:14 | Emergency (ER) | payer OTHER ==
[2017-06-18 23:14] VITALS: BMI 38.5
[2017-06-18 23:45] VITALS: BP 160/91; PULSE 76; RESP 16; TEMP 98.3; O2SAT 97
--- NOTE | 2017-06-19 00:03 | ED PDOC ---
HPI: CCC, URI, Sore Throat Time Seen by Provider: 06/18/17 23:15 Chief Complaint (Nursing): ENT Problem Chief Complaint (Provider): Throat pain History Per: Patient History/Exam Limitations: no limitations Have you had recent travel within the past 21 days to any of the following countries: [place], [place], [place] or [place]?: No Onset/Duration Of Symptoms: Days Current Symptoms Are (Timing): Still Present Location Of Pain: Throat Sick Contacts (Context): None Associated Symptoms: Sore Throat. denies: Fever, Nausea, Vomiting Additional History Per: Patient Additional Complaint(s): 52yo female with no past medical history, presents to ED for evaluation of throat pain, present for the past couple days. Patient states she was seen by MD one week ago for similar symptoms, was given amoxicillin and ibuprofen which she took with minimal relief of symptoms. Patient also has secondary complaint of abdominal discomfort, described as a burning like sensation. She denies any fever, chills, nausea, vomiting, diarrhea, cough, shortness of breath. Patient has no other complaints. Past Medical History Reviewed: Historical Data, Nursing Documentation, Vital Signs Vital Signs: Last Vital Signs Temp 98.3 F 06/18/17 23:36 Pulse 76 06/18/17 23:36 Resp 16 06/18/17 23:36 BP 160/91 H 06/18/17 23:36 Pulse Ox 97 06/19/17 01:24 - Medical History PMH: No Chronic Diseases Denies: Chronic Kidney Disease - Surgical History Surgical History: No Surg Hx - Family History Family History: States: No Known Family Hx, Unknown Family Hx - Living Arrangements Living Arrangements: With Family - Social History Current smoker - smoking cessation education provided: No Ex-Smoker (has not smoked in the last 12 months): No Alcohol: None Drugs: Denies - Home Medications Home Medications: Ambulatory Orders Medication Instructions Recorded Doxycycline Monohydrate 100 mg PO Q12H 5 Days #10 tablet 05/05/17 guaiFENesin/Dextromethorphan 10 ml PO Q6 PRN #1 bottle 05/05/17 [Robitussin DM] Amoxicillin/Clavulanate [Augmentin 1 tab PO BID #14 tab 06/06/17 875 MG-125 MG] Ibuprofen [Motrin Tab] 800 mg PO Q8 PRN #20 tab 06/06/17 Naproxen [Naprosyn] 500 mg PO BID PRN #14 tab 06/13/17 Famotidine [Pepcid] 20 mg PO DAILY #10 tab 06/19/17 - Allergies Allergies/Adverse Reactions: Allergies Allergy/AdvReac Type Severity Reaction Status Date / Time No Known Allergies Allergy Verified 05/04/17 09:23 Review of Systems ROS Statement: Except As Marked, All Systems Reviewed And Found Negative Constitutional: Negative for: Fever ENT: Positive for: Throat Pain Cardiovascular: Negative for: Chest Pain Respiratory: Negative for: Shortness of Breath Gastrointestinal: Positive for: Abdominal Pain. Negative for: Nausea, Vomiting , Diarrhea Physical Exam - Reviewed Nursing Documentation Reviewed: Yes Vital Signs Reviewed: Yes - Physical Exam Appears: Positive for: Non-toxic, No Acute Distress Head Exam: Positive for: ATRAUMATIC, NORMAL INSPECTION, NORMOCEPHALIC Skin: Positive for: Normal Color Eye Exam: Positive for: EOMI, PERRL ENT: Positive for: Normal ENT Inspection. Negative for: Pharyngeal Erythema, Tonsillar Exudate, Tonsillar Swelling Neck: Positive for: Supple Cardiovascular/Chest: Positive for: Regular Rate, Rhythm Respiratory: Positive for: Normal Breath Sounds. Negative for: Respiratory Distress Gastrointestinal/Abdominal: Positive for: Soft. Negative for: Tenderness Extremity: Positive for: Normal ROM Neurologic/Psych: Positive for: Alert, Oriented - Laboratory Results Result Diagrams: 06/19/17 00:15 06/19/17 00:15 - ECG O2 Sat by Pulse Oximetry: 97 (RA) Pulse Ox Interpretation: Normal Medical Decision Making Medical Decision Making: Impression: URI, gastritis Plan: -- Labs -- Rapid strep -- Pepcid 20 mg IVP Reassess Time: 0124 Labs reviewed and within normal limits. Strep culture negative. pt feels better.Patient stable for discharge home. Scribe Attestation: Documented by Jessica Stevens acting as a scribe for Leigh Middleton MD. Provider Attestation: All medical record entries made by the Scribe were at my direction and personally dictated by me. I have reviewed the chart and agree that the record accurately reflects my personal performance of the history, physical exam, medical decision making, and the department course for this patient. I have also personally directed, reviewed, and agree with the discharge instructions and disposition. Disposition - Clinical Impression Clinical Impression: Gastritis - Patient ED Disposition Is Patient to be Admitted: No Counseled Patient/Family Regarding: Studies Performed, Diagnosis, Need For Followup - Disposition Referrals: [facility] [Outside] [facility] [Outside] Disposition: Routine/Home Disposition Time: 01:00 Condition: IMPROVED Additional Instructions: follow up with your primary doctor in 1-2 days return to the ED with any worsening or concerning symptoms Prescriptions: Famotidine [Pepcid] 20 mg PO DAILY #10 tab Instructions: Gastritis (ED) Forms: [employer] ([place]) Print Language: KHMER
[2017-06-19 00:58] LABS: BASO # 0.1 K/uL (0.0-0.2); BASO % 1.3 % (0.0-2.0); EOS # 0.3 K/uL (0.0-0.7); EOS % 2.6 % (0.0-4.0); HEMOGLOBIN 13.2 g/dL (12.0-16.0); MEAN CELL VOLUME 88.7 fl (81.0-99.0); MEAN CORPUSCULAR HEMOGLOBIN 28.7 pg (27.0-31.0); MEAN CORPUSCULAR HGB CONC 32.4 g/dL (33.0-37.0); MEAN PLATELET VOLUME 7.4 fl (7.2-11.7); MONO # 0.8 K/uL (0.0-0.8); MONO % 7.7 % (0.0-10.0); NEUT # 4.8 K/uL (1.8-7.0); NEUT % 48.4 % (50.0-75.0); NRBC % 0.1 % (0.0-0.0); RBC 4.59 Mil/uL (3.80-5.20)
[2017-06-19 01:09] LABS: ALB/GLOB RATIO 1.2 (1.0-2.1); ALBUMIN 4.3 g/dL (3.5-5.0); ALT/SGPT 43 U/L (9-52); AST/SGOT 26 U/L (14-36); BLOOD UREA NITROGEN 11 mg/dl (7-17); CALCIUM 9.6 mg/dL (8.4-10.2); GFR AFRICAN-AMERICAN > 60; GFR NON-AFRICAN AMERICAN > 60; LIPASE 105 U/L (23-300)
== END 2017-06-19 01:54 | disposition home or self-care (01) ==
LOC: H.ER 23:14
DX: K29.70 Gastritis, unspecified, without bleeding (principal); Z87.891 Personal history of nicotine dependence
CPT/HCPCS: 80053; 83690; 85025; 87070; 87430; 96374; 96375; 99282; C9113

== ENCOUNTER 2017-08-12 08:51 | Emergency (ER) | payer OTHER ==
[2017-08-12 08:51] VITALS: BMI 38.5
--- NOTE | 2017-08-12 09:11 | ED PDOC ---
HPI: CCC, URI, Sore Throat Time Seen by Provider: 08/12/17 09:04 Chief Complaint (Nursing): Flu-like Symptoms History Per: Patient Onset/Duration Of Symptoms: Days (2) Current Symptoms Are (Timing): Still Present Location Of Pain: Throat, Diffuse Myalgias Associated Symptoms: Fever, Sore Throat, Cough. denies: Sputum Severity: Mild Additional Complaint(s): Non productive cough assoc with sore throat congestion and fever x 2 days. Has chest pain when coughing. Past Medical History Vital Signs: Last Vital Signs Temp 99 F 08/12/17 09:04 Pulse 92 H 08/12/17 09:04 Resp 18 08/12/17 09:04 BP 135/83 08/12/17 09:04 Pulse Ox 97 08/12/17 09:04 - Medical History PMH: No Chronic Diseases Denies: Chronic Kidney Disease - Family History Family History: States: Unknown Family Hx - Home Medications Home Medications: Ambulatory Orders Medication Instructions Recorded Doxycycline Monohydrate 100 mg PO Q12H 5 Days #10 tablet 05/05/17 guaiFENesin/Dextromethorphan 10 ml PO Q6 PRN #1 bottle 05/05/17 [Robitussin DM] Amoxicillin/Clavulanate [Augmentin 1 tab PO BID #14 tab 06/06/17 875 MG-125 MG] Ibuprofen [Motrin Tab] 800 mg PO Q8 PRN #20 tab 06/06/17 Naproxen [Naprosyn] 500 mg PO BID PRN #14 tab 06/13/17 Famotidine [Pepcid] 20 mg PO DAILY #10 tab 06/19/17 Albuterol HFA [Ventolin HFA 90 2 puff IH Q4H #1 puff 08/12/17 mcg/actuation (8 g)] Oseltamivir [Tamiflu] 75 mg PO BID #10 cap 08/12/17 - Allergies Allergies/Adverse Reactions: Allergies Allergy/AdvReac Type Severity Reaction Status Date / Time No Known Allergies Allergy Verified 08/12/17 09:04 Review of Systems ROS Statement: Except As Marked, All Systems Reviewed And Found Negative Constitutional: Positive for: Fever, Malaise ENT: Positive for: Throat Pain Respiratory: Positive for: Cough, Pleuritic Pain Physical Exam - Reviewed Nursing Documentation Reviewed: Yes Vital Signs Reviewed: Yes - Physical Exam Appears: Positive for: Non-toxic, No Acute Distress Head Exam: Positive for: ATRAUMATIC, NORMAL INSPECTION, NORMOCEPHALIC Skin: Positive for: Normal Color, Warm, DRY Eye Exam: Positive for: Normal appearance ENT: Positive for: Normal ENT Inspection Neck: Positive for: Normal, Painless ROM Cardiovascular/Chest: Positive for: Regular Rate, Rhythm Respiratory: Positive for: CNT, Normal Breath Sounds Back: Positive for: Normal Inspection Extremity: Positive for: Normal ROM Neurologic/Psych: Positive for: Alert, Oriented - ECG O2 Sat by Pulse Oximetry: 97 Disposition - Clinical Impression Clinical Impression: Influenza-like symptoms - Patient ED Disposition Is Patient to be Admitted: No Counseled Patient/Family Regarding: Diagnosis, Need For Followup, Rx Given - Disposition Referrals: [facility] [Outside] Disposition: Routine/Home Disposition Time: 09:11 Condition: FAIR Prescriptions: Albuterol HFA [Ventolin HFA 90 mcg/actuation (8 g)] 2 puff IH Q4H #1 puff Oseltamivir [Tamiflu] 75 mg PO BID #10 cap Instructions: Flu, Adult (DC) Print Language: LAO
[2017-08-12 09:37] VITALS: BP 128/78; PULSE 78; RESP 19; TEMP 98.9; O2SAT 98
== END 2017-08-12 09:37 | disposition home or self-care (01) ==
LOC: H.ER 08:51
DX: J11.1 Influenza due to unidentified influenza virus with other respiratory manifestations (principal)